=== PATIENT | male | born 1960 | race Caucasian/White ===

== ENCOUNTER 2017-11-26 14:05 | Emergency (ER) | payer MEDICAID ==
[~2017-11-26] VITALS: Ht 180.3 cm; Wt 72.7 kg
[2017-11-26 14:11] VITALS: Ht 180.3 cm; Wt 72.7 kg
[2017-11-26] MEDS ORDERED: NORCO 7.5/325 T1 TA1 PO (14:28)
[2017-11-26] MEDS ORDERED: KEFLEX500 MG PO (14:28)
[2017-11-26 15:33] VITALS: BP 118/72
== END 2017-11-26 15:33 | disposition home or self-care (01) ==
LOC: D.ER 14:05
DX: S61.011A Laceration without foreign body of right thumb without damage to nail, initial encounter (principal); W29.8XXA Contact with other powered hand tools and household machinery, initial encounter; Y93.89 Activity, other specified; Y92.89 Other specified places as the place of occurrence of the external cause

== ENCOUNTER 2017-12-09 11:11 | Emergency (ER) | payer MEDICAID ==
[~2017-12-09] VITALS: Ht 180.3 cm; Wt 72.7 kg
[~2017-12-09 11:11] MED LIST: KEFLEX500 MG PO; NORCO 7.5/325 T1 TA1 PO
[2017-12-09 11:15] VITALS: BP 145/84; Ht 180.3 cm; Wt 72.7 kg
[2017-12-09] MEDS ORDERED: BACTRIM DS TABL1 TAB PO (11:24)
== END 2017-12-09 11:35 | disposition home or self-care (01) ==
LOC: D.ER 11:11
DX: L03.012 Cellulitis of left finger (principal); F17.200 Nicotine dependence, unspecified, uncomplicated